=== PATIENT | male | born 1975 | race Two or more races ===

== ENCOUNTER 2021-06-13 23:10 | Emergency (ER) | payer SELFPAY ==
[~2021-06-13] VITALS: Ht 162.6 cm; Wt 83.9 kg
[2021-06-13 23:10] VITALS: BP 117/61
== END 2021-06-14 07:59 | disposition left against medical advice (07) ==
LOC: ER 23:10
DX: R07.89 Other chest pain (principal); M54.9 Dorsalgia, unspecified; W18.39XA Other fall on same level, initial encounter; Y93.89 Activity, other specified; Y92.89 Other specified places as the place of occurrence of the external cause; Y99.8 Other external cause status